=== PATIENT | female | born 1975 | race Caucasian/White ===

== ENCOUNTER → 2017-08-07 | Outpatient (CLI) | payer OTHER ==
[2004-12-02 01:58] VITALS: TEMP 97.1
[~2017-08-07] MED LIST: ACIPHEX20 MG PO; PRENATAL1 TA1 PO; ZANTAC
== END ==
LOC: COL.RAD 11:07
DX: R93.8 Abnormal findings on diagnostic imaging of other specified body structures (principal); N92.0 Excessive and frequent menstruation with regular cycle

== ENCOUNTER → 2017-12-02 | Outpatient (CLI) | payer OTHER | LOC: MC.RAD 10-07 11:00 | DX: Z12.31 Encounter for screening mammogram for malignant neoplasm of breast (principal); R92.8 Other abnormal and inconclusive findings on diagnostic imaging of breast ==

== ENCOUNTER → 2017-12-11 | Outpatient (CLI) | payer OTHER | LOC: MC.RAD 13:58 | DX: R92.8 Other abnormal and inconclusive findings on diagnostic imaging of breast (principal) ==

== ENCOUNTER → 2019-02-10 | Outpatient (CLI) | payer OTHER | LOC: MC.RAD 13:06 | DX: Z12.31 Encounter for screening mammogram for malignant neoplasm of breast (principal) ==

== ENCOUNTER → 2019-11-30 | Outpatient (CLI) | payer BC | LOC: COL.RAD 11:41 | DX: E01.0 Iodine-deficiency related diffuse (endemic) goiter (principal) ==

== ENCOUNTER → 2019-12-23 | Outpatient (CLI) | payer BC | LOC: COL.RAD 12:58 | DX: K21.9 Gastro-esophageal reflux disease without esophagitis (principal); K44.9 Diaphragmatic hernia without obstruction or gangrene ==

== ENCOUNTER 2020-03-16 05:37 | Day surgery (SDC) | payer BC ==
[2020-03-16] VITALS (11 sets, daily range): BP systolic 130–149; BP diastolic 81–93; PULSE 75–97; TEMP 97.5–98.3
[~2020-03-16] VITALS: Ht 157.5 cm; Wt 72.3 kg
[2020-03-16] MEDS ORDERED: SYNTHROID0.112 MG/T PO (06:01)
[2020-03-16] MEDS ORDERED: PROTONIX 40MG T40 MG PO (06:01)
[2020-03-16] MEDS ORDERED: LEXAPRO 10MG10 MG PO (06:26)
--- NOTE | 2020-03-16 10:20 | NUR ---
Patient received post op from Kacie Pacu nurse. Robotic lap site x6, bandaids intact. Iv to int. Vss. Will monitor.
--- NOTE | 2020-03-16 12:40 | NUR ---
Patient still having neck pain. motrin per request.
--- NOTE | 2020-03-16 15:16 | NUR ---
Patient has done well post op. Vitals stable. She has been independent in room. Motrin for pain relief. Pain continues to her neck. Kpad had helped. She has tolerated clear liquids.
--- NOTE | 2020-03-16 18:00 | NUR ---
Patient continues to do well. Tylenol for pain. Reports shoulder pain. Tolerated a yogurt for dinner. No nausea. VOiding adeqately. Int. Will montior.
--- NOTE | 2020-03-16 19:00 | NUR ---
Received report from GUERLINE Zaman. Pt is currently ambulating around the room. Pt has no concerns at this time.
[2020-03-17 00:41] VITALS: BP 123/83; PULSE 77; TEMP 98.3
[2020-03-17 05:06] VITALS: BP 142/91; PULSE 72; TEMP 98.1
--- NOTE | 2020-03-17 06:30 | NUR ---
Pt has had a very good night. Pt has ambulated in her room .Pt asked for Motrin this morning she ate a pudding at this time. Pt tolerated this well. She stated that walking around in her room has help with the shoulder pain. Her lap sites looked well this morining. Pt has her call light within reach.
--- NOTE | 2020-03-17 07:15 | NUR ---
Reported off to GUERLIEN Singh. Pt lying in bed resting with her call light within reach.
[2020-03-17 07:19] VITALS: BP 138/88; PULSE 74; TEMP 98.1
--- NOTE | 2020-03-17 08:00 | NUR ---
Patient in bed resting. Alert and oriented x 3. Assessment complete. Lap sites x 6 with bandaids are CDI. Denies pain at this time. Patient independent in room. Denies further needs at this time.
--- NOTE | 2020-03-17 10:00 | NUR ---
[employer] Agent met with patient to discuss discharge planning. Patient lives in [place] with her Khris ([id number]#[phone]) and their three kids. Patient sees Dr. Crockett for primary care and obtains medications from [facility] with no difficulties. Patient does not use any DME and is independent with [facility]. Patient does not have DPOA-[facility] but was interested in form. SW provided. Patient plans to return home, likely today. No needs at this time.
[2020-03-17 11:35] VITALS: BP 154/94; PULSE 84; TEMP 97.7
[2020-03-17] MEDS ORDERED: ULTRAM 50MG TAB50 MG PO (11:44)
--- NOTE | 2020-03-17 12:20 | NUR ---
Discharge education provided to patient. Educated on activity restrictions and when to call provider. Educated on new medication and medication safety. All questions answered. INT to left hand discontinued, catheter tip intact. Denies further needs at this time. Patient ambulated out with surgical staff.
--- NOTE | 2020-03-17 12:29 | NUR ---
First visit from the archivist [employer] history. No needs right now.
== END 2020-03-17 12:20 | disposition home or self-care (01) ==
LOC: SDCO 05:37 → SURG 10:05 → SDCO 03-17 12:20
DX: K21.9 Gastro-esophageal reflux disease without esophagitis (principal); K44.9 Diaphragmatic hernia without obstruction or gangrene; K42.0 Umbilical hernia with obstruction, without gangrene; Z88.2 Allergy status to sulfonamides; Z79.899 Other long term (current) drug therapy
CPT/HCPCS: OP; J0690; J1100; J2250; J2405; J2704; J2765; J3010; J7120

== ENCOUNTER → 2021-06-12 | Outpatient (CLI) | payer BC ==
[~2021-06-12] MED LIST changes: +LEXAPRO 10MG10 MG PO; +PROTONIX 40MG T40 MG PO; +SYNTHROID0.112 MG/T PO; +ULTRAM 50MG TAB50 MG PO
== END ==
LOC: COL.RAD 07:33
DX: K21.9 Gastro-esophageal reflux disease without esophagitis (principal); J02.9 Acute pharyngitis, unspecified; R19.7 Diarrhea, unspecified; R14.0 Abdominal distension (gaseous)
CPT/HCPCS: A9541

== ENCOUNTER → 2022-05-31 | Outpatient (CLI) | payer BC | LOC: COL.RAD 07:30 | DX: R10.13 Epigastric pain (principal); R19.7 Diarrhea, unspecified; R10.11 Right upper quadrant pain ==

== ENCOUNTER → 2022-06-21 | Outpatient (CLI) | payer BC | LOC: COL.RAD 06:20 | DX: R10.9 Unspecified abdominal pain (principal); R19.7 Diarrhea, unspecified | CPT/HCPCS: A9537 ==

== ENCOUNTER 2022-07-15 14:25 | Emergency (ER) | payer BC ==
[~2022-07-15] VITALS: Ht 157.5 cm; Wt 62.7 kg
[2022-07-15 14:29] VITALS: TEMP 98.3
[2022-07-15 15:09] LABS: COLLECTION METHOD CLEAN CATCH
[2022-07-15 15:27] LABS: URINE APPEARANCE Clear (CLEAR/HAZY); URINE BLOOD Negative (NEGATIVE); URINE COLOR Straw (YELLOW); URINE GLUCOSE Negative (NEGATIVE); URINE KETONE Negative (NEGATIVE); URINE NITRATE Negative (NEGATIVE); URINE PROTEIN(semi-quant) Negative (NEGATIVE); URINE UROBILINOGEN 0.2 E.U/dL (0.2-1.0)
[2022-07-15 15:28] LABS: SQUAMOUS EPITHELIAL None Seen /hpf (0-10); URINE BACTERIA None Seen /hpf (NONE SEEN); URINE RBC None Seen /hpf (0-2)
[2022-07-15 15:30] LABS: BILIRUBIN,TOTAL 0.4 mg/dL (0.2-1.2); CALCIUM 8.5 mg/dL (8.4-10.2); CREATININE, serum 0.84 mg/dL (0.57-1.11); POTASSIUM 4.1 mmol/L (3.5-4.5); TOTAL PROTEIN 6.6 gm/dL (6.2-8.1)
[2022-07-15 16:00] LABS: BASO % 0.6 % (0.0-2.0); EOS # 0.2 K/mm3 (0.0-0.7); EOS % 3.8 % (0.0-4.0); GRAN # 3.2 K/mm3 (1.4-6.5); GRAN % 60.3 % (42.2-75.2); HEMATOCRIT 37.5 % (37.0-47.0); HEMOGLOBIN 13.3 g/dl (12.5-16.0); LYMPH # 1.4 K/mm3 (1.2-3.4); LYMPH % 26.6 % (20.0-51.0); MEAN CELL VOLUME 89 fl (80.0-100.0); MEAN CORPUSCULAR HEMOGLOBIN 32 pg (27-31); MEAN CORPUSCULAR HGB CONC 36 g/dl (33.0-37.0); MEAN PLATELET VOLUME 9.9 fl (7.4-10.4); MONO # 0.5 K/mm3 (0.1-0.6); MONO % 8.5 % (1.7-9.3); PLATELET COUNT 267 K/mm3 (130-400); RED BLOOD COUNT 4.21 M/mm3 (4.10-5.30); REDCELL DISTRIBUTION WIDTH-CV 11.8 % (11.5-14.5)
[2022-07-15 17:55] VITALS: BP 126/75; PULSE 74
== END 2022-07-15 18:02 | disposition home or self-care (01) ==
LOC: COL.ER 14:25
PROVIDERS: Emergency Medicine; Physician Assistant
DX: N83.201 Unspecified ovarian cyst, right side (principal); Z87.19 Personal history of other diseases of the digestive system
CPT/HCPCS: J2405; Q9967

== ENCOUNTER → 2023-08-21 | Outpatient (CLI) | payer BC | LOC: CANSCHCLI → MC.RAD 08:46 | DX: Z12.31 Encounter for screening mammogram for malignant neoplasm of breast (principal) ==